=== PATIENT | male | born 1980 | race Caucasian/White ===

== ENCOUNTER → 2024-02-27 07:22 | Outpatient (REF) | payer BC, SELFPAY | LOC: HWRAD 07:22 | PROVIDERS: ATTENDING PHYSICIAN Internal Medicine Endocrinology, Diabetes & Metabolism; FAMILY PHYSICIAN Family Medicine | DX: R10.9 Unspecified abdominal pain (principal); R74.8 Abnormal levels of other serum enzymes | CPT/HCPCS: 76700 ==